=== PATIENT | male | born 1940 | race Caucasian/White ===

== ENCOUNTER 2018-09-30 08:00 | Day surgery (SDC) | payer OTHER ==
[~2018-09-30] VITALS: Ht 182.9 cm; Wt 102.5 kg
[~2018-09-30 08:00] MED LIST: CHOL10002 PO; DIPATR PO; Diovan Hct 1601 EACH PO; FISH OIL 1,0001 EAC1 PO; METF500 PO; OXYACE5T PO; PROM25 PO; SIMV10 PO; TRAM50 PO; VALS80 PO
[2018-09-30] MEDS ORDERED: ASPI81CH PO (08:02)
--- NOTE | 2018-09-30 08:19 | NUR ---
Ambulatory in Day SurgeryPatient states colon prep results clear. History, Chart, Medications and Allergies reviewed before start of procedure.Lungs clear T/O to Auscultation. Patient confirms NPO status and agrees with scheduled surgery. Patient States Post-Procedure ride home has been arranged.
--- NOTE | 2018-09-30 08:32 | NUR ---
09/30/18 0832 Antonio Plata PATIENT DETERMINED TO BE ASA APPROPRIATE FOR PROPOFOL SEDATION PRIOR TO START OF PROCEDURE BY 3-LEAD EKG REVIEWED WITH PHYSICIAN PRIOR TO START OF PROCEDURE.3-LEAD EKG REVIEWED WITH PHYSICIAN PRIOR TO START OF PROCEDURE.Patient to ENDO 1History, Chart, Medications and Allergies reviewed before start of procedure.MONITOR INTACT WITH CONTINUOUS PULSE OXIMETRY AND INTERMITTENT BP.O2 VIA N/C INTACT THROUGHOUT SEDATION/PROCEDURE.
--- NOTE | 2018-09-30 10:09 | NUR ---
Patient up to Ambulate independently. Gait steady. Discharge instructions reviewed with patient. Patient verbalizes understanding. Copy given to patient to take home. Patient States Post-Procedure ride home has been arranged. Discharged via wheelchair to private car for ride home. PT INFO TO BE GIVEN TO PT ADVOCATE FOR F/U CALL REGARDING RESOURCES OR CONTACT INFO FOR POTENTIAL RESOURCES FOR RESPITE CARE FOR HOME SITUATION. 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 DIALYSIS AND DEMENTIA.
== END 2018-09-30 22:54 | disposition home or self-care (01) ==
LOC: ORSCMMR 08:00 → ORD 09:00 → ORSCMMR 22:54
PROVIDERS: Internal Medicine Gastroenterology
PROC: 0DBL8ZX Excision of Transverse Colon, Via Natural or Artificial Opening Endoscopic, Diagnostic (ICD-10-PCS; principal; 2018-09-30 09:00)
PROC: 0DBH8ZX Excision of Cecum, Via Natural or Artificial Opening Endoscopic, Diagnostic (ICD-10-PCS; principal; 2018-09-30 09:00)
PROC: 0DBN8ZX Excision of Sigmoid Colon, Via Natural or Artificial Opening Endoscopic, Diagnostic (ICD-10-PCS; principal; 2018-09-30 09:00)
PROC: 0DBM8ZX Excision of Descending Colon, Via Natural or Artificial Opening Endoscopic, Diagnostic (ICD-10-PCS; principal; 2018-09-30 09:00)
DX: Z86.010 Personal history of colon polyps (principal); D12.4 Benign neoplasm of descending colon; D12.3 Benign neoplasm of transverse colon; D12.0 Benign neoplasm of cecum; D12.5 Benign neoplasm of sigmoid colon; K63.89 Other specified diseases of intestine; I10 Essential (primary) hypertension; E78.00 Pure hypercholesterolemia, unspecified; E11.9 Type 2 diabetes mellitus without complications; Z79.899 Other long term (current) drug therapy; Z87.891 Personal history of nicotine dependence; Z79.82 Long term (current) use of aspirin
CPT/HCPCS: 82947; 88305; J2704; J7120

== ENCOUNTER 2020-02-25 16:38 | Emergency (ER) | payer OTHER ==
[~2020-02-25] VITALS: Ht 182.9 cm; Wt 103.4 kg
[~2020-02-25 16:38] MED LIST changes: +ASPI81CH PO; +LINZESS290 MCG PO
[2020-02-25 17:12] LABS: BASOPHILS ABSOLUTE AUTO 0.02 K/mm3 (0.00-0.23); BASOPHILS PERCENT AUTO 1 % (0-2); EOSINOPHILS ABSOLUTE AUTO 0.05 K/mm3 (0.00-0.68); EOSINOPHILS PERCENT AUTO 1 % (0-6); Hematocrit 40.6 % (37.0-53.0); Hemoglobin 13.7 g/dL (13.5-17.5); IMMATURE GRAN ABSOLUTE AUTO 0.02 K/mm3 (0.00-0.10); IMMATURE GRAN PERCENT AUTO 1 % (0-1); LYMPHOCYTES PERCENT AUTO 27 % (21-46); MONOCYTES ABSOLUTE AUTO 0.52 K/mm3 (0.16-1.47); MONOCYTES PERCENT AUTO 14 % (4-13); Mean Corpuscular HGB 29.4 pg (26.0-34.0); Mean Corpuscular HGB Conc 33.7 g/dL (31.5-36.5); Mean Corpuscular Volume 87 fL (80-100); Mean Platelet Volume 9.1 fL (9.1-12.4); NEUTROPHILS ABSOLUTE AUTO 2.15 K/mm3 (1.96-9.15); NEUTROPHILS PERCENT AUTO 57 % (41-73); Platelet Count 161 K/mm3 (150-400); RDW Coefficient Variation 11.9 % (11.7-14.2); RDW Standard Deviation 38.4 fL (35.1-46.3); Red Blood Cell Count 4.66 M/mm3 (4.30-5.90); White Blood Cell Count 3.76 K/mm3 (4.00-11.30)
[2020-02-25 17:33] LABS: Alanine Aminotransfer (ALT/SGP 31 U/L (12-78); Albumin, Blood 3.1 g/dL (3.4-5.0); Albumin/Globulin Ratio 0.7 (0.8-1.8); Alk Phos 65 U/L (50-136); Anion Gap 10 mmol/L (6-16); Aspartate Aminotrans (AST/SGOT 37 U/L (12-37); Bilirubin, Total 0.6 mg/dL (0.1-1.0); Blood Urea Nitrogen 23 mg/dL (8-24); Bun/Creatinine Ratio 20.2 (12.0-20.0); CO2, Blood 25 mmol/L (21-32); Calcium, Blood 8.7 mg/dL (8.5-10.1); Chloride, Blood 96 mmol/L (98-108); Creatinine, Blood 1.14 mg/dL (0.60-1.20); Globulin, Blood 4.2 g/dL (2.2-4.0); Glomerular Filtration Rate >60 (60-); Glucose, Blood 168 mg/dL (70-99); Potassium, Blood 3.4 mmol/L (3.5-5.5); Sodium, Blood 131 mmol/L (136-145); Total Protein, Blood 7.3 g/dL (6.4-8.2); Troponin I <0.015 ng/mL (0.000-0.040)
== END 2020-02-25 18:29 | disposition home or self-care (01) ==
LOC: ER 16:38 → EDBD 16:38 → ER 18:29
PROVIDERS: Student in an Organized Health Care Education/Training Program
DX: R53.1 Weakness (principal); I10 Essential (primary) hypertension; Z79.82 Long term (current) use of aspirin; Z79.84 Long term (current) use of oral hypoglycemic drugs; Z79.899 Other long term (current) drug therapy; Z87.891 Personal history of nicotine dependence
CPT/HCPCS: 36415; 80053; 84484; 85025; 93005; 93010; 99284-25

== ENCOUNTER 2020-04-17 08:48 | Emergency (ER) | payer OTHER ==
[~2020-04-17] VITALS: Ht 182.9 cm; Wt 108.9 kg
[2020-04-17] MEDS ORDERED: BISA5EC PO (09:13)
[2020-04-17] MEDS ORDERED: MAGCIT300 PO (09:13)
== END 2020-04-17 09:16 | disposition home or self-care (01) ==
LOC: ER 08:48
DX: K59.00 Constipation, unspecified (principal); I10 Essential (primary) hypertension; Z87.891 Personal history of nicotine dependence
CPT/HCPCS: 99282

== ENCOUNTER 2021-12-11 06:35 | Day surgery (SDC) | payer OTHER ==
[~2021-12-11] VITALS: Ht 182.9 cm; Wt 107.0 kg
[~2021-12-11 06:35] MED LIST changes: +BISA5EC PO; +FISH OIL 1,2001 EAC4 PO; +MAGCIT300 PO
--- NOTE | 2021-12-11 08:06 | NUR ---
12/11/21 0806 Сергей Pappas HISTORY, CHART, MEDICATIONS AND ALLERGIES REVIEWED BEFORE START OF PROCEDURE. PATIENT CONFIRMS NPO STATUS AND AGREES WITH SCHEDULED PROCEDURE. 3-LEAD EKG REVIEWED WITH PHYSICIAN PRIOR TO START OF PROCEDURE. MONITOR INTACT WITH CONTINUOUS PULSE OXIMETRY,CAPNOGRAPHY, 3-LEAD EKG, INTERMITTENT BP. SUPPLEMENTAL O2 TO BE TITRATED THROUGHOUT PROCEDURE TO MAINTAIN O2 SATURATION ABOVE 90%. PATIENT DETERMINED TO BE ASA APPROPRIATE FOR PROPOFOL SEDATION PRIOR TO START OF PROCEDURE BY .
--- NOTE | 2021-12-11 10:06 | NUR ---
Discharge instructions reviewed with patient. Patient verbalizes understanding. Copy given to patient to take home. Discharged via wheelchair to private car for ride home.
== END 2021-12-11 09:30 | disposition home or self-care (01) ==
LOC: ORSCMMR 06:35 → ORD 08:00 → ORSCMMR 08:00
PROVIDERS: Internal Medicine Gastroenterology
PROC: 0DBK8ZX Excision of Ascending Colon, Via Natural or Artificial Opening Endoscopic, Diagnostic (ICD-10-PCS; principal; 2021-12-11 08:00)
PROC: 0DBM8ZX Excision of Descending Colon, Via Natural or Artificial Opening Endoscopic, Diagnostic (ICD-10-PCS; principal; 2021-12-11 08:00)
PROC: 0DBL8ZX Excision of Transverse Colon, Via Natural or Artificial Opening Endoscopic, Diagnostic (ICD-10-PCS; principal; 2021-12-11 08:00)
PROC: 0DBN8ZX Excision of Sigmoid Colon, Via Natural or Artificial Opening Endoscopic, Diagnostic (ICD-10-PCS; principal; 2021-12-11 08:00)
DX: Z86.010 Personal history of colon polyps (principal); D12.5 Benign neoplasm of sigmoid colon; D12.3 Benign neoplasm of transverse colon; D12.2 Benign neoplasm of ascending colon; D12.4 Benign neoplasm of descending colon; K63.5 Polyp of colon; Z86.16 Personal history of COVID-19; H40.9 Unspecified glaucoma; I10 Essential (primary) hypertension; E78.00 Pure hypercholesterolemia, unspecified; K63.89 Other specified diseases of intestine; E11.9 Type 2 diabetes mellitus without complications; Z87.891 Personal history of nicotine dependence; Z79.82 Long term (current) use of aspirin; Z79.84 Long term (current) use of oral hypoglycemic drugs; Z79.899 Other long term (current) drug therapy
CPT/HCPCS: 82947; 88305; J2704; J7120

== ENCOUNTER 2023-01-20 08:06 | Day surgery (SDC) | payer OTHER ==
[2023-01-20] VITALS (33 sets, daily range): BP systolic 89–166; BP diastolic 53–89
[~2023-01-20] VITALS: Ht 182.9 cm; Wt 99.4 kg
[~2023-01-20 08:06] MED LIST changes: +GLUCHON PO
--- NOTE | 2023-01-20 08:35 | NUR ---
Ambulatory in Day Surgery History, Chart, Medications and Allergies reviewed before start of procedure.Lungs clear T/O to Auscultation. Patient confirms NPO status and agrees with scheduled surgery. Patient states colon prep results clear. Patient States Post-Procedure ride home has been arranged.
--- NOTE | 2023-01-20 08:56 | NUR ---
01/20/23 08Tracie Powell HISTORY, CHART, MEDICATIONS AND ALLERGIES REVIEWED BEFORE START OF PROCEDURE. PATIENT CONFIRMS NPO STATUS AND AGREES WITH SCHEDULED PROCEDURE. 3-LEAD EKG REVIEWED WITH PHYSICIAN PRIOR TO START OF PROCEDURE. MONITOR INTACT WITH CONTINUOUS PULSE OXIMETRY,CAPNOGRAPHY, 3-LEAD EKG, INTERMITTENT BP. SUPPLEMENTAL O2 TO BE TITRATED THROUGHOUT PROCEDURE TO MAINTAIN O2 SATURATION ABOVE 90%. PATIENT DETERMINED TO BE ASA APPROPRIATE FOR PROPOFOL SEDATION PRIOR TO START OF PROCEDURE BY .
--- NOTE | 2023-01-20 10:24 | NUR ---
Patient up to Ambulate independently. Gait steady. Discharge instructions reviewed with patient. Patient verbalizes understanding. Copy given to patient to take home, WELL FRIEND. Patient States Post-Procedure ride home has been arranged. Discharged via wheelchair to private car for ride home.
== END 2023-01-20 10:24 | disposition home or self-care (01) ==
LOC: ORSCMMR 08:06 → ORD 09:00 → ORSCMMR 10:24
PROVIDERS: Internal Medicine Gastroenterology
PROC: 0DBN8ZX Excision of Sigmoid Colon, Via Natural or Artificial Opening Endoscopic, Diagnostic (ICD-10-PCS; principal; 2023-01-20 09:00)
PROC: 0DBL8ZX Excision of Transverse Colon, Via Natural or Artificial Opening Endoscopic, Diagnostic (ICD-10-PCS; principal; 2023-01-20 09:00)
PROC: 0DBM8ZX Excision of Descending Colon, Via Natural or Artificial Opening Endoscopic, Diagnostic (ICD-10-PCS; principal; 2023-01-20 09:00)
PROC: 0DBK8ZX Excision of Ascending Colon, Via Natural or Artificial Opening Endoscopic, Diagnostic (ICD-10-PCS; principal; 2023-01-20 09:00)
DX: Z86.010 Personal history of colon polyps (principal); D12.5 Benign neoplasm of sigmoid colon; D12.3 Benign neoplasm of transverse colon; D12.2 Benign neoplasm of ascending colon; D12.4 Benign neoplasm of descending colon; Z85.46 Personal history of malignant neoplasm of prostate; I10 Essential (primary) hypertension; E11.9 Type 2 diabetes mellitus without complications; E78.00 Pure hypercholesterolemia, unspecified; Z79.84 Long term (current) use of oral hypoglycemic drugs; Z79.899 Other long term (current) drug therapy; Z87.891 Personal history of nicotine dependence
CPT/HCPCS: 82947; 88305; J2250; J2704; J7120

== ENCOUNTER 2023-08-08 10:04 | Inpatient (IN) | payer OTHER ==
[~2023-08-08] VITALS: Ht 185.4 cm; Wt 101.3 kg
[~2023-08-08 10:04] MED LIST changes: -SIMV10 PO; +Zocor10 MG PO
[2023-08-08] MEDS ORDERED: NS 1,000 ML IV SCH ×2 (10:55→14:20)
[2023-08-08 11:37] LABS: BASOPHILS ABSOLUTE AUTO 0.11 K/mm3 (0.00-0.23); BASOPHILS PERCENT AUTO 1 % (0-2); EOSINOPHILS ABSOLUTE AUTO 0.02 K/mm3 (0.00-0.68); EOSINOPHILS PERCENT AUTO 0 % (0-6); Hematocrit 45.9 % (37.0-53.0); Hemoglobin 14.4 g/dL (13.5-17.5); IMMATURE GRAN ABSOLUTE AUTO 0.03 K/mm3 (0.00-0.10); IMMATURE GRAN PERCENT AUTO 0 % (0-1); LYMPHOCYTES ABSOLUTE AUTO 0.39 K/mm3 (0.84-5.20); LYMPHOCYTES PERCENT AUTO 4 % (21-46); MONOCYTES PERCENT AUTO 4 % (4-13); Mean Corpuscular HGB 29.1 pg (26.0-34.0); Mean Corpuscular HGB Conc 31.4 g/dL (31.5-36.5); Mean Corpuscular Volume 93 fL (80-100); Mean Platelet Volume 9.1 fL (9.1-12.4); NEUTROPHILS ABSOLUTE AUTO 10.07 K/mm3 (1.96-9.15); NEUTROPHILS PERCENT AUTO 91 % (41-73); Platelet Count 173 K/mm3 (150-400); RDW Coefficient Variation 12.5 % (11.7-14.2); RDW Standard Deviation 42.5 fL (35.1-46.3); Red Blood Cell Count 4.94 M/mm3 (4.30-5.90); White Blood Cell Count 11.02 K/mm3 (4.00-11.30)
[2023-08-08 11:57] LABS: Albumin, Blood 3.8 g/dL (3.4-5.0); Bilirubin, Total 1.2 mg/dL (0.1-1.0); Bun/Creatinine Ratio 17.3 (12.0-20.0); Calcium, Blood 9.1 mg/dL (8.5-10.1); Creatinine, Blood 0.93 mg/dL (0.60-1.20); Globulin, Blood 3.9 g/dL (2.2-4.0); Potassium, Blood 3.8 mmol/L (3.5-5.5); Total Protein, Blood 7.7 g/dL (6.4-8.2)
[2023-08-08 11:58] LABS: BASOPHILS PERCENT MAN 0 % (0-2); EOSINOPHILS PERCENT MAN 0 % (0-6); LYMPHOCYTES ABSOLUTE MAN 0.11 K/mm3 (0.84-5.20); LYMPHOCYTES PERCENT MAN 1 % (21-46); MONOCYTES ABSOLUTE MAN 0.11 K/mm3 (0.16-1.47); MONOCYTES PERCENT MAN 1 % (4-13); NEUTROPHILS ABSOLUTE MAN 10.79 K/mm3 (1.96-9.15); SEG NEUTROPHILS PERCENT MAN 98 % (41-73); TOTAL CELLS COUNTED 100
[2023-08-08] MEDS ORDERED: Ketorolac Tromethamine 30mg Vial IV ONE (13:00)
[2023-08-08 13:11] LABS: Source, Urine Clean Catch
[2023-08-08 13:13] LABS: Appearance, Urine Clear (Clear); Bilirubin, Urine Neg (Neg); Blood, Urine 2+ (Neg); Color, Urine Yellow (P-Yellow); Glucose Qualitative, Urine Neg (Neg); Ketones, Urine 4+ (Neg); Leukocyte Esterase, Urine Neg (Neg); Nitrite, Urine Neg (Neg); Protein, Urine 1+ (Neg); Specific Gravity, Urine 1.015 (1.003-1.022); Urobilinogen, Urine NORM (Normal)
[2023-08-08] MEDS ORDERED: Adenosine 3 MG/ML 2 ML Vial ONE ×2 (14:03→14:05)
[2023-08-08] MEDS ORDERED: dilTIAZem HCL 125 MG in Dextrose 5% 100 ML IV SCH (14:15)
[2023-08-08] MEDS ORDERED: Diltiazem HCl 5 MG / ML 5ML Vial IV ONE (14:15)
[2023-08-08] MEDS ORDERED: Adenosine 3 MG/ML 2 ML Vial IV ONE ×2 (14:15)
[2023-08-08 14:20] LABS: Bacteria Mod /hpf; Mucus Light (0-Heavy); Squamous Epithelial Cells Rare /hpf (Few); White Blood Cells, Urine 0-2 /hpf (0-5)
[2023-08-08] MEDS ORDERED: Acetaminophen 325 MG TABLET PO PRN (15:20)
[2023-08-08] MEDS ORDERED: DiphenhydrAMINE HCL 25 MG Cap PO PRN (15:20)
[2023-08-08] MEDS ORDERED: TraMADol HCl 50 MG Tab PO PRN (15:25)
[2023-08-08] MEDS ORDERED: Ondansetron HCl 2 MG / ML 2ML Vial IV PRN (15:25)
[2023-08-08] MEDS ORDERED: NS KCl 20mEq 1,000 ML IV SCH (15:25)
[2023-08-08] MEDS ORDERED: TraZODone HCl 50 MG Tab PO PRN (15:25)
[2023-08-08 15:37] LABS: U Amphetamine Screen Not Detected; U Barbituate Screen Not Detected; U Benzodiazapine Screen Not Detected; U Buprenorphine Screen Not Detected; U Cannabinoids Screen Not Detected; U Cocaine Screen Not Detected; U Methadone Screen Not Detected; U Methamphetamine Screen Not Detected; U Opiates Screen Not Detected; U Oxycodone Screen Not Detected; U Phencyclidine Screen Not Detected
--- NOTE | 2023-08-08 16:16 | NUR ---
REPORT RECIEVED FROM ED NURSE AT 1036
[2023-08-08] MEDS ORDERED: Insulin Human Lispro 100 Units/ML 3ML Syringe SC SCH (16:30)
[2023-08-08 16:51] VITALS: BP 143/64
[2023-08-08] MEDS ORDERED: GLUCHON PO (16:58)
[2023-08-08 17:37] VITALS: BP 121/99
--- NOTE | 2023-08-08 17:50 | NUR ---
ARRIVAL TO PCU PT ARRIVED TO PCU AT 1635 VIA GURNEY AND ON RA. PT HAD DILT GTT AND NS KCL RUNNING PER ORDER. PT A/OX4 AT TIME OF ARRIVAL. NO REPORT OF CHEST PAIN/PRESSURE OR SOB. PT ABLE TO AMBULATED FROM GURNEY TO BED WITH MINIMAL ASSISTANCE. HR 90'S WHILE AT REST ON GURNEY AND TACHED UP TO 110 WHILE TRANSFERING TO PCU BED. VS TAKEN AND STABLE AT ARRIVAL. PT ORIENTED TO ROOM AND INFORMED OF FALL RISKS. PT INSTRUCTED TO USE CALL LIGHT FOR ASSISTANCE, PT VERBALIZED UNDERSTANDING. PT A GOOD HISTORIAN FOR HEALTH.
[2023-08-08] MEDS ORDERED: Atorvastatin 10 MG Tab PO SCH (18:00)
[2023-08-08 18:22] VITALS: BP 136/63
[2023-08-08 19:27] VITALS: BP 133/67
[2023-08-08] MEDS ORDERED: Famotidine 10 MG/ML 2ML Vial IV SCH (21:00)
--- NOTE | 2023-08-08 21:15 | NUR ---
UPDATE CARDIZEM GTT TITRATED OFF AT THIS TIME DUE TO PATIENT BEING IN SINUS RHYTHM WITH HR MID 80s SINCE START OF SHIFT. BP STABLE. PATIENT DENYING CHEST PAIN OR ANY OTHER CARDIAC SYMPTOMS. CALL LIGHT IN REACH.
[2023-08-08 23:25] VITALS: BP 112/51
[2023-08-09 04:42] VITALS: BP 133/70
[2023-08-09] MEDS ORDERED: Hyaluronidase 150 UNIT/ML Vial SC ONE (05:05)
--- NOTE | 2023-08-09 05:15 | NUR ---
UPDATE PATIENT CALLED THIS RN AND REPORTED LEFT ARM PAIN. UPON ASSESSMENT, NOTED LEFT UPPER ARM TO FOREARM WAS SWOLLEN AND WARM TO TOUCH, WITH SOME SWELLING. NS/20MEQ POTASSIUM INFUSING INTO POWERGLIDE. INFUSION PAUSED. PHARMACY AND HOSPITALIST CALLED. PER PHARMACY RECOMMENDATION, AMPHADASE INJECTED INTO POWERGLIDE AND INJECTED SUBCUTANEOUS AROUND POWERGLIDE INSERTION SITE. POWERGLIDE REMOVED. MARK ANTHONY WRAP AROUND UPPER ARM AND FOREARM. PATIENT EDUCATED ON INFILTRATION AND TREATMENT. PATIENT TOLERATING WELL. MEDICATED PER EMAR FOR PAIN.
[2023-08-09 05:27] LABS: BASOPHILS PERCENT AUTO 1 % (0-2); EOSINOPHILS PERCENT AUTO 0 % (0-6); Hematocrit 41.4 % (37.0-53.0); Hemoglobin 13.4 g/dL (13.5-17.5); IMMATURE GRAN ABSOLUTE AUTO 0.03 K/mm3 (0.00-0.10); IMMATURE GRAN PERCENT AUTO 0 % (0-1); LYMPHOCYTES ABSOLUTE AUTO 1.04 K/mm3 (0.84-5.20); LYMPHOCYTES PERCENT AUTO 12 % (21-46); MONOCYTES ABSOLUTE AUTO 0.77 K/mm3 (0.16-1.47); MONOCYTES PERCENT AUTO 9 % (4-13); Mean Corpuscular HGB 29.3 pg (26.0-34.0); Mean Corpuscular HGB Conc 32.4 g/dL (31.5-36.5); Mean Corpuscular Volume 91 fL (80-100); Mean Platelet Volume 9.2 fL (9.1-12.4); NEUTROPHILS ABSOLUTE AUTO 6.76 K/mm3 (1.96-9.15); NEUTROPHILS PERCENT AUTO 78 % (41-73); Platelet Count 169 K/mm3 (150-400); RDW Coefficient Variation 12.8 % (11.7-14.2); RDW Standard Deviation 41.8 fL (35.1-46.3); Red Blood Cell Count 4.57 M/mm3 (4.30-5.90)
[2023-08-09 05:50] LABS: Albumin, Blood 3.5 g/dL (3.4-5.0); Albumin/Globulin Ratio 0.9 (0.8-1.8); Bilirubin, Total 0.8 mg/dL (0.1-1.0); Calcium, Blood 8.9 mg/dL (8.5-10.1); Creatinine, Blood 0.95 mg/dL (0.60-1.20); Globulin, Blood 3.7 g/dL (2.2-4.0); Potassium, Blood 3.9 mmol/L (3.5-5.5); Total Protein, Blood 7.2 g/dL (6.4-8.2)
--- NOTE | 2023-08-09 06:46 | NUR ---
SHIFT SUMMARY PATIENT ALERT AND ORIENTED x4. ABLE TO MAKE NEEDS KNOWN TO STAFF. CARDIZEM TITRATED OFF AROUND 2100 D/T PATIENT IN SR ON TELE. NO CARDIAC EVENTS OVERNIGHT. BP STABLE. TMAX 100.5, MEDICATED WITH PRN TYLENOL. PATIENT ON RA WITH SPO2 >90% DURING THE NIGHT. PATIENT AMBULATING INTO BATHROOM STANDBY ASSIST. ADEQUATE OUTPUT DURING THE NIGHT. SEE PREVIOUS NOTE REGARDING INFILTRATION. OTHERWISE NO OTHER SIGNIFICANT CHANGES, WILL REPORT TO DAY SHIFT RN.
[2023-08-09 07:30] VITALS: BP 142/71
[2023-08-09] MEDS ORDERED: Azithromycin 500 MG in NS 250 ML IV SCH (09:00)
[2023-08-09] MEDS ORDERED: CefTRIAXone Sodium 1,000 MG in NS 100 ML IV SCH (09:00)
[2023-08-09] MEDS ORDERED: Misc. Capsule PO SCH (09:00)
[2023-08-09] MEDS ORDERED: Misc. Tablet PO SCH (09:00)
[2023-08-09] MEDS ORDERED: Enoxaparin 40 MG/0.4 ML SYR SC SCH (09:00)
[2023-08-09] MEDS ORDERED: Losartan Potassium 50 MG Tab PO SCH (09:00)
[2023-08-09] MEDS ORDERED: Aspirin 81 MG Chew PO SCH (09:00)
[2023-08-09 11:54] VITALS: BP 142/70
[2023-08-09] MEDS ORDERED: Metoprolol Succinate 25 MG TABCR PO SCH (12:00)
[2023-08-09] MEDS ORDERED: LOSA50 PO (12:51)
[2023-08-09] MEDS ORDERED: METO25ER PO (12:52)
[2023-08-09] MEDS ORDERED: AMOCLA875 PO (12:54)
[2023-08-09] MEDS ORDERED: AZIT250 PO (12:54)
[2023-08-09 13:17] LABS: Adenovirus Not Detected (NOT DETECT); Bordetella pertussis Not Detected (NOT DETECT); Chlamydophila pneumoniae Not Detected (NOT DETECT); Coronavirus 229E Not Detected (NOT DETECT); Coronavirus HKU1 Not Detected (NOT DETECT); Coronavirus NL63 Not Detected (NOT DETECT); Coronavirus OC43 Not Detected (NOT DETECT); Human Metapneumovirus Not Detected (NOT DETECT); Human Rhinovirus/Enterovirus Not Detected (NOT DETECT); Influenza A/2009-H1 Not Detected (NOT DETECT); Influenza A/H1 Not Detected (NOT DETECT); Influenza A/H3 Not Detected (NOT DETECT); Influenza B Not Detected (NOT DETECT); Mycoplasma pneumoniae Not Detected (NOT DETECT); Parainfluenza Virus 1 Not Detected (NOT DETECT); Parainfluenza Virus 2 Not Detected (NOT DETECT); Parainfluenza Virus 3 Not Detected (NOT DETECT); Parainfluenza Virus 4 Not Detected (NOT DETECT); Respiratory Syncytial Virus Not Detected (NOT DETECT); SARS-Cov-2 (COVID-19), BioFire Detected (NOT DETECT)
--- NOTE | 2023-08-09 14:37 | NUR ---
PT DISCHARGED TO HOME WIHT DISCHARGE ORDERS. PRESCRIPTION SENT TO [facility]. PT TO CONTINUE ANTIBIOTICS AT HOME. PT HAD AN EPISODE OF NON SUSTAINED SVT PT STARTED ON METOPROLOL 25MG XL PO. PT WAS TESTED FOR RESPI PANEL AND CAME BACK POSITIVE FOR COVID. DR LEAL MADE AWARE. OKAY TO DC PT AND INSTRUCTED TO FF-UP WITH PCP WITHIN A WEEK AND TO GET SOME REST AND HYDRATE. FAMILY AT BEDSIDE UPON DISCHARGE. ALL BELONGINGS SENT WITH THE PT. ACCOMPANIED VIA WHEELCHAIR FOR TRANSPORT
== END 2023-08-09 14:25 | disposition home or self-care (01) | DRG 308 ==
LOC: ER 10:04 → PCU 16:19
PROVIDERS: Emergency Medicine; ADMIT Family Medicine
DX: I47.10 Supraventricular tachycardia, unspecified (principal); J12.82 Pneumonia due to coronavirus disease 2019; U07.1 COVID-19; I50.32 Chronic diastolic (congestive) heart failure; E11.9 Type 2 diabetes mellitus without complications; E86.0 Dehydration; Z66 Do not resuscitate; I11.0 Hypertensive heart disease with heart failure; M19.90 Unspecified osteoarthritis, unspecified site; G89.4 Chronic pain syndrome; E78.5 Hyperlipidemia, unspecified; Z90.79 Acquired absence of other genital organ(s); Z90.49 Acquired absence of other specified parts of digestive tract; Z87.891 Personal history of nicotine dependence; Z79.82 Long term (current) use of aspirin; Z79.84 Long term (current) use of oral hypoglycemic drugs; Z79.899 Other long term (current) drug therapy
CPT/HCPCS: 0202U; 36415; 71045; 80053; 81001; 82947; 83735; 84439; 84443; 84481; 84484; 85025; 92953; 93005; 93010; 94760; 96361-59; 96374-59; 96375-59; 99285-25; A9270; J0153; J0456; J0696; J1650; J1885; J3470; J3480; J7030; J7050

== ENCOUNTER 2024-01-21 07:36 | Observation (INO) | payer OTHER ==
[~2024-01-21] VITALS: Ht 182.9 cm; Wt 98.6 kg
[~2024-01-21 07:36] MED LIST changes: +AMOCLA875 PO; +AZIT250 PO; +LOSA50 PO; +METO25ER PO
[2024-01-21] MEDS ORDERED: Metoprolol Tartrate 25 MG Tab PO ONE (07:50)
[2024-01-21] MEDS ORDERED: NS 500 ML IV SCH ×2 (08:00→08:50)
[2024-01-21 08:06] LABS: BASOPHILS ABSOLUTE AUTO 0.19 K/mm3 (0.00-0.23); BASOPHILS PERCENT AUTO 2 % (0-2); EOSINOPHILS ABSOLUTE AUTO 0.45 K/mm3 (0.00-0.68); EOSINOPHILS PERCENT AUTO 5 % (0-6); Hematocrit 45.5 % (37.0-53.0); Hemoglobin 14.7 g/dL (13.5-17.5); IMMATURE GRAN ABSOLUTE AUTO 0.02 K/mm3 (0.00-0.10); IMMATURE GRAN PERCENT AUTO 0 % (0-1); LYMPHOCYTES PERCENT AUTO 30 % (21-46); MONOCYTES ABSOLUTE AUTO 0.44 K/mm3 (0.16-1.47); MONOCYTES PERCENT AUTO 5 % (4-13); Mean Corpuscular HGB 29.5 pg (26.0-34.0); Mean Corpuscular HGB Conc 32.3 g/dL (31.5-36.5); Mean Corpuscular Volume 91 fL (80-100); Mean Platelet Volume 9.4 fL (9.1-12.4); NEUTROPHILS ABSOLUTE AUTO 5.27 K/mm3 (1.96-9.15); NEUTROPHILS PERCENT AUTO 58 % (41-73); Platelet Count 270 K/mm3 (150-400); RDW Coefficient Variation 12.8 % (11.7-14.2); RDW Standard Deviation 42.4 fL (35.1-46.3); Red Blood Cell Count 4.98 M/mm3 (4.30-5.90); White Blood Cell Count 9.07 K/mm3 (4.00-11.30)
[2024-01-21 08:43] LABS: Albumin, Blood 3.2 g/dL (3.4-5.0); Bilirubin, Total 0.5 mg/dL (0.1-1.0); Bun/Creatinine Ratio 14.9 (12.0-20.0); Calcium, Blood 9.4 mg/dL (8.5-10.1); Creatinine, Blood 1.34 mg/dL (0.60-1.20); Globulin, Blood 3.2 g/dL (2.2-4.0); Potassium, Blood 3.6 mmol/L (3.5-5.5); Total Protein, Blood 6.4 g/dL (6.4-8.2)
[2024-01-21] MEDS ORDERED: METF500 PO (13:43)
[2024-01-21] MEDS ORDERED: Ondansetron HCl 2 MG / ML 2ML Vial IV PRN (15:25)
[2024-01-21] MEDS ORDERED: TraZODone HCl 50 MG Tab PO PRN (15:25)
[2024-01-21] MEDS ORDERED: Ondansetron 4 MG TAB PO PRN (15:25)
[2024-01-21] MEDS ORDERED: FLU VACC TS2024-25(6MOS UP)/PF 45 MCG/0.5 ML SYRINGE IM ONE (15:25)
[2024-01-21] MEDS ORDERED: TraMADol HCl 50 MG Tab PO PRN (15:30)
[2024-01-21 15:40] VITALS: BP 147/80
[2024-01-21] MEDS ORDERED: Heparin Sodium 5000 Units/ML 1ML MDV SC SCH (16:00)
[2024-01-21] MEDS ORDERED: Insulin Human Lispro 100 Units/ML 3ML Syringe SC SCH (16:30)
--- NOTE | 2024-01-21 19:34 | NUR ---
ADMISSION NOTE/SHIFT NOTE PATIENT A/OX4, ABLE TO MAKE NEEDS KNOWN. INDEPENDENT IN ROOM, PLEASANT ADN COOPERATIVE WITH STAFF. CONTINENT OF BOWEL AND BLADDER. PIV TO BILATERAL WRISTS PATENT AND FUNCTIONING PROPERLY. PATIENT ADMITTED WITH SVT AND CARDIOVERTED BY EMS WITH HEART RATE IN 160s AND SBP 60. BLOOD PRESSURE UPON ADMISSION WNL AND TELEMETRY IN PLACE WITH SINUS RHYTHYM IN 70s. PATIENT STATES HAS BEEN HAVING DIARRHEA SINCE LASTNIGHT. SKIN INTACT WITH REDNESS TO SCROTUM AND PENILE HEAD. ADMISSION DOCUMENTATION COMPLETED, PATIENT DENIES PAIN. FRIENDS CAME TO VISIT THIS EVENING. PATIENT STATES HE LIVES ALONE. NO OTHER CONCERNS AT THIS TIME.
[2024-01-21 20:25] VITALS: BP 147/65
[2024-01-21] MEDS ORDERED: GLUCOSAMINE CHONDROITIN PO SCH (21:00)
[2024-01-21] MEDS ORDERED: Atorvastatin 10 MG Tab PO SCH (21:00)
[2024-01-21] MEDS ORDERED: Famotidine 20 MG Tab PO SCH (21:00)
--- NOTE | 2024-01-22 03:26 | NUR ---
SHIFT SUMMARY PT IS A&O X4, PLEASANT, COOPERATIVE WITH CARE. PT DENIES PAIN AND DISCOMFORT. TELE: SR @76, NO CHANGES ON TELEMETRY DURING THIS SHIFT. PT DENIES SOB, CHEST PAIN OR PRESSURE. HS B. DAILY WT THIS AM, I &O'S. BP @HS: 147/65, P.65, O2 96% ON RA. NO ACUTE EVENTS DURING THIS SHIFT. BED AT THE LOWEST POSITION, CALL LIGHT WITHIN REACH. PT IS ABLE TO MAKE HIS NEEDS KNOWN.
[2024-01-22 05:08] VITALS: BP 166/72
[2024-01-22 05:35] LABS: BASOPHILS ABSOLUTE AUTO 0.18 K/mm3 (0.00-0.23); BASOPHILS PERCENT AUTO 3 % (0-2); EOSINOPHILS ABSOLUTE AUTO 0.51 K/mm3 (0.00-0.68); EOSINOPHILS PERCENT AUTO 7 % (0-6); Hematocrit 44.4 % (37.0-53.0); Hemoglobin 14.3 g/dL (13.5-17.5); IMMATURE GRAN ABSOLUTE AUTO 0.01 K/mm3 (0.00-0.10); IMMATURE GRAN PERCENT AUTO 0 % (0-1); LYMPHOCYTES ABSOLUTE AUTO 1.74 K/mm3 (0.84-5.20); LYMPHOCYTES PERCENT AUTO 24 % (21-46); MONOCYTES ABSOLUTE AUTO 0.55 K/mm3 (0.16-1.47); MONOCYTES PERCENT AUTO 8 % (4-13); Mean Corpuscular HGB 29.5 pg (26.0-34.0); Mean Corpuscular HGB Conc 32.2 g/dL (31.5-36.5); Mean Corpuscular Volume 92 fL (80-100); Mean Platelet Volume 8.8 fL (9.1-12.4); NEUTROPHILS ABSOLUTE AUTO 4.27 K/mm3 (1.96-9.15); NEUTROPHILS PERCENT AUTO 59 % (41-73); Platelet Count 195 K/mm3 (150-400); RDW Coefficient Variation 12.6 % (11.7-14.2); RDW Standard Deviation 42.8 fL (35.1-46.3); Red Blood Cell Count 4.84 M/mm3 (4.30-5.90); White Blood Cell Count 7.26 K/mm3 (4.00-11.30)
[2024-01-22 05:55] LABS: Albumin, Blood 3.3 g/dL (3.4-5.0); Albumin/Globulin Ratio 0.9 (0.8-1.8); Bilirubin, Total 0.5 mg/dL (0.1-1.0); Bun/Creatinine Ratio 23.1 (12.0-20.0); Calcium, Blood 9.4 mg/dL (8.5-10.1); Creatinine, Blood 1.08 mg/dL (0.60-1.20); Globulin, Blood 3.5 g/dL (2.2-4.0); Potassium, Blood 4.2 mmol/L (3.5-5.5); Total Protein, Blood 6.8 g/dL (6.4-8.2)
--- NOTE | 2024-01-22 06:23 | NUR ---
CRITICAL LAB VALUE OF TROPONIN:983 RECEIVED FROM VERÓNICA @LAB @0610. THIS PAYROLL SECRETARY NOTIFIED THE ON-CALL HOSPITALIST DR. HOWELL @[phone] OVER THE PHONE. NO NEW ORDERS AT THIS TIME. CHARGE NURSE SOFYA HOLDER NOTIFIED.
[2024-01-22 07:36] VITALS: BP 149/83
[2024-01-22] MEDS ORDERED: Omega-3 Acid Ethyl Esters 1,000 MG CAP PO SCH (09:00)
[2024-01-22] MEDS ORDERED: LINACLOTIDE (LINZESS) 290 MCG CAPSULE PO SCH (09:00)
[2024-01-22] MEDS ORDERED: Aspirin 81 MG Chew PO SCH (09:00)
[2024-01-22] MEDS ORDERED: Metoprolol Succinate 25 MG TABCR PO SCH (09:00)
[2024-01-22 10:14] VITALS: BP 170/93
[2024-01-22] MEDS ORDERED: dilTIAZem HCL 240 MG CAP.CD PO ONE (10:15)
[2024-01-22 12:49] VITALS: BP 137/89
[2024-01-22] MEDS ORDERED: DILT120 PO (13:08)
--- NOTE | 2024-01-22 13:46 | NUR ---
DISCHARGE SUMMARY: PT DISCHARGED TO HOME. PT ABLE TO GET SELF DRESSED AND PACK UP BELONGINGS. PT EDUCATED ON DISCHARGE INSTRUCTIONS AND MEDICATIONS. BP UPDATED PRIOR TO DISCHARGE AND NOTIFIED DR. GATES OF RESULT. PER DR. GATES PT OKAY TO GO HOME. EDUCATED PT ON IMPORTANCE OF CHECKING BP PRIOR TO TAKING DILTIAZEM. PT REPORTS HE KNOWS HOW TO TAKE BP AND HE WILL WRITE THEM DOWN FOR HIS DR TO REVIEW. ALSO EDUCATED PT ON FLUID RESTRICTION AND ADVISED HIME TO CHECK HIS WEIGHT DAILY AND IF GAINED +5 LBS TO CALL HIS DOCTOR. PT V/U. PT ESCORTED TO [facility] VIA WHEELCHAIR VOLUNTEER ESCORT. BELONGINGS WITH PT.
== END 2024-01-22 13:32 | disposition home or self-care (01) ==
LOC: ER 07:36 → MEDS 07:37
PROVIDERS: Student in an Organized Health Care Education/Training Program; ADMIT Internal Medicine
DX: I47.10 Supraventricular tachycardia, unspecified (principal); I11.0 Hypertensive heart disease with heart failure; I50.32 Chronic diastolic (congestive) heart failure; E11.9 Type 2 diabetes mellitus without complications; M19.90 Unspecified osteoarthritis, unspecified site; I35.0 Nonrheumatic aortic (valve) stenosis; Z79.84 Long term (current) use of oral hypoglycemic drugs; Z79.899 Other long term (current) drug therapy; E78.5 Hyperlipidemia, unspecified
CPT/HCPCS: 36415; 71045; 71250; 80053; 82947; 83735; 83880; 84484; 85025; 93005; 93010; 93306; 96360-59; 96361; 96372; 99285-25; A9270; G0378; J1644; J7030

== ENCOUNTER 2024-02-18 08:22 | Observation (INO) | payer OTHER ==
[~2024-02-18] VITALS: Ht 182.9 cm; Wt 97.5 kg
[~2024-02-18 08:22] MED LIST changes: +DILT120 PO
[2024-02-18 08:56] LABS: BASOPHILS ABSOLUTE AUTO 0.17 K/mm3 (0.00-0.23); BASOPHILS PERCENT AUTO 2 % (0-2); EOSINOPHILS ABSOLUTE AUTO 0.35 K/mm3 (0.00-0.68); EOSINOPHILS PERCENT AUTO 4 % (0-6); Hematocrit 46.5 % (37.0-53.0); Hemoglobin 15.1 g/dL (13.5-17.5); IMMATURE GRAN ABSOLUTE AUTO 0.02 K/mm3 (0.00-0.10); IMMATURE GRAN PERCENT AUTO 0 % (0-1); LYMPHOCYTES ABSOLUTE AUTO 1.07 K/mm3 (0.84-5.20); LYMPHOCYTES PERCENT AUTO 13 % (21-46); MONOCYTES ABSOLUTE AUTO 0.49 K/mm3 (0.16-1.47); MONOCYTES PERCENT AUTO 6 % (4-13); Mean Corpuscular HGB 29.4 pg (26.0-34.0); Mean Corpuscular HGB Conc 32.5 g/dL (31.5-36.5); Mean Corpuscular Volume 91 fL (80-100); Mean Platelet Volume 8.7 fL (9.1-12.4); NEUTROPHILS PERCENT AUTO 74 % (41-73); Platelet Count 233 K/mm3 (150-400); RDW Coefficient Variation 12.4 % (11.7-14.2); RDW Standard Deviation 41.1 fL (35.1-46.3); Red Blood Cell Count 5.14 M/mm3 (4.30-5.90)
[2024-02-18 09:14] LABS: Bilirubin, Total 0.6 mg/dL (0.1-1.0); Bun/Creatinine Ratio 16.5 (12.0-20.0); Calcium, Blood 10.1 mg/dL (8.5-10.1); Creatinine, Blood 1.03 mg/dL (0.60-1.20); Globulin, Blood 4.1 g/dL (2.2-4.0); Potassium, Blood 4.3 mmol/L (3.5-5.5); Total Protein, Blood 8.1 g/dL (6.4-8.2)
[2024-02-18] MEDS ORDERED: FLU VACC TS2024-25(6MOS UP)/PF 45 MCG/0.5 ML SYRINGE IM SCH (13:05)
[2024-02-18] MEDS ORDERED: TraMADol HCl 50 MG Tab PO PRN (13:15)
[2024-02-18] MEDS ORDERED: Caffeine Citrated 60 MG/3 ML Vial ONE (14:43)
[2024-02-18] MEDS ORDERED: Regadenoson 0.4 MG/5 ML SYRINGE ONE (14:43)
--- NOTE | 2024-02-18 16:45 | NUR ---
PER DR. STRANGE HOLD TONIGHT AND MORNING DOSE OF METFORMIN, ORDER TELE, CBG AC/HS, NO COVERAGE AT THIS TIME.
[2024-02-18] MEDS ORDERED: MetFORMIN HCl 500 mg PO SCH (17:00)
[2024-02-18 17:07] VITALS: BP 124/62
--- NOTE | 2024-02-18 17:17 | NUR ---
PT ADMIT FROM ER. ALERT AND ORIENTED X4, ABLE TO EXPRESS NEEDS, DENIES CHEST PAIN AND PRESSURE, DENIES SOB. INDEPENDENT IN THE ROOM
[2024-02-18] MEDS ORDERED: Atorvastatin 10 MG Tab PO SCH (18:00)
[2024-02-18 19:28] VITALS: BP 137/71
[2024-02-19 05:44] VITALS: BP 153/84
[2024-02-19 06:39] LABS: BASOPHILS ABSOLUTE AUTO 0.15 K/mm3 (0.00-0.23); BASOPHILS PERCENT AUTO 2 % (0-2); EOSINOPHILS ABSOLUTE AUTO 0.47 K/mm3 (0.00-0.68); EOSINOPHILS PERCENT AUTO 8 % (0-6); Hematocrit 39.8 % (37.0-53.0); Hemoglobin 13.1 g/dL (13.5-17.5); IMMATURE GRAN ABSOLUTE AUTO 0.02 K/mm3 (0.00-0.10); IMMATURE GRAN PERCENT AUTO 0 % (0-1); LYMPHOCYTES ABSOLUTE AUTO 1.35 K/mm3 (0.84-5.20); LYMPHOCYTES PERCENT AUTO 22 % (21-46); MONOCYTES PERCENT AUTO 8 % (4-13); Mean Corpuscular HGB Conc 32.9 g/dL (31.5-36.5); Mean Corpuscular Volume 91 fL (80-100); Mean Platelet Volume 9.1 fL (9.1-12.4); NEUTROPHILS ABSOLUTE AUTO 3.65 K/mm3 (1.96-9.15); NEUTROPHILS PERCENT AUTO 60 % (41-73); Platelet Count 245 K/mm3 (150-400); RDW Coefficient Variation 12.4 % (11.7-14.2); RDW Standard Deviation 41.1 fL (35.1-46.3); Red Blood Cell Count 4.37 M/mm3 (4.30-5.90); White Blood Cell Count 6.14 K/mm3 (4.00-11.30)
--- NOTE | 2024-02-19 06:43 | NUR ---
AAOX4, INDEPENDENT IN ROOM, STEADY GAIT. PT WILL RING FOR HELP WITH SCDS OR TO LET STAFF KNOW HE IS GOING OR WENT TO BR. TELE IN PLACE, SR IN THE 90'S. NPO @ MIDNIGHT FOR STRESS TEST ON 02/18/23.
[2024-02-19 07:02] LABS: LDL/HDL RATIO 1.2; Magnesium, Blood 2.2 mg/dL (1.6-2.4)
[2024-02-19 07:03] LABS: CHOL/HDL RATIO 2.5; Cholesterol 136 mg/dL (50-200); HDL Cholesterol 54 mg/dL (>39); Low Density Lipoprotein Chol 62 mg/dL (0-110); Triglycerides 98 mg/dL (30-160); Very Low Density Lipoprot Chol 19 mg/dL (6-32)
[2024-02-19 08:07] VITALS: BP 152/80
[2024-02-19] MEDS ORDERED: Enoxaparin 40 MG/0.4 ML SYR SC SCH (09:00)
[2024-02-19] MEDS ORDERED: Losartan Potassium 50 MG Tab PO SCH (09:00)
[2024-02-19] MEDS ORDERED: Aspirin 81 MG Chew PO SCH (09:00)
[2024-02-19] MEDS ORDERED: dilTIAZem HCL 240 MG CAP.CD PO SCH (09:00)
--- NOTE | 2024-02-19 12:32 | NUR ---
Pt has been discharged to home after got results of stress test, went over discharge instructions with him, he verbalized understanding, iv removed intact, will eat lunch and wait for ride, call light in reach.
--- NOTE | 2024-02-19 13:15 | NUR ---
pt left via wheelchair with battery technician in attendence with all his belongings.
== END 2024-02-19 13:15 | disposition home or self-care (01) ==
LOC: ER 08:22 → MEDS 08:23
PROVIDERS: Physician Assistant; ADMIT Family Medicine
DX: R07.89 Other chest pain (principal); R79.89 Other specified abnormal findings of blood chemistry; E78.5 Hyperlipidemia, unspecified; E11.9 Type 2 diabetes mellitus without complications; I11.0 Hypertensive heart disease with heart failure; I50.30 Unspecified diastolic (congestive) heart failure; I35.0 Nonrheumatic aortic (valve) stenosis; I48.91 Unspecified atrial fibrillation; Z79.899 Other long term (current) drug therapy; Z79.84 Long term (current) use of oral hypoglycemic drugs; Z87.891 Personal history of nicotine dependence
CPT/HCPCS: 36415; 71046; 78452; 80053; 80061; 82947; 83735; 83880; 84443; 84484; 85025; 93005; 93010; 93017; 96372; 99285-25; A9270; A9500; G0378; J0706; J1650; J2785

== ENCOUNTER 2024-11-12 06:07 | Day surgery (SDC) | payer OTHER ==
[~2024-11-12] VITALS: Ht 177.8 cm; Wt 88.3 kg
[~2024-11-12 06:07] MED LIST changes: +ACET500 PO; +AMOX250; +AZIT250; +DECADRON4 M1 PO; +DILT180 PO; +FARXIGA10 MG PO; +FOLI1 PO; +LOSA25; +OLAN2.5 PO; +Vitamin D1000 UNI1 PO
[2024-11-12] MEDS ORDERED: CeFAZolin Sodium 2,000 MG in NS 100 ML IV SCH (06:45)
[2024-11-12 07:02] VITALS: BP 114/52
--- NOTE | 2024-11-12 07:24 | NUR ---
History, Chart, Medications and Allergies reviewed before start of procedure. Pre-Op teaching done. Pt verbalizes understanding. Patient confirms NPO status and agrees with scheduled surgery.
[2024-11-12] MEDS ORDERED: Heparin Sodium 5000 Units/ML 1ML MDV ONE (07:46)
[2024-11-12] MEDS ORDERED: Bupivacaine 0.5% HCl 5 MG/ML 30MLVIAL ONE (07:47)
[2024-11-12] MEDS ORDERED: FentaNYL Citrate 50 MCG/ML 2 ML Injection ONE (08:01)
[2024-11-12] MEDS ORDERED: Phenylephrine HCl 100 MCG/ML-NS 10MLSYR (1MG/10ML) ONE (08:09)
[2024-11-12] MEDS ORDERED: HYDROmorphone HCl/Pf 1MG SYR IV PRN ×2 (08:20)
[2024-11-12] MEDS ORDERED: FentaNYL Citrate 50 MCG/ML 2 ML Injection IV PRN ×2 (08:20)
[2024-11-12] MEDS ORDERED: Ondansetron HCl 2 MG / ML 2ML Vial IV PRN (08:20)
[2024-11-12] MEDS ORDERED: Albuterol 2.5 MG/3 ML VIAL INH PRN (08:20)
[2024-11-12] MEDS ORDERED: Dexamethasone Sodium Phosphate 4 MG/ML 5ML VIAL IV PRN (08:25)
[2024-11-12] MEDS ORDERED: Ondansetron HCl 2 MG / ML 2ML Vial ONE (08:39)
[2024-11-12] MEDS ORDERED: Ketorolac Tromethamine 30mg Vial ONE (08:39)
[2024-11-12] MEDS ORDERED: Dexamethasone Sod Phos 10 MG/ML 1ML VIAL ONE (08:39)
[2024-11-12 08:50] VITALS: BP 121/53
[2024-11-12 08:55] VITALS: BP 108/55
[2024-11-12 09:00] VITALS: BP 110/53
[2024-11-12] MEDS ORDERED: HYDROcodone 5-APAP 325 TAB PO PRN (09:00)
[2024-11-12 09:05] VITALS: BP 111/49
[2024-11-12 09:26] VITALS: BP 116/49
--- NOTE | 2024-11-12 09:52 | NUR ---
Discharged via wheelchair to private car for ride home. Patient States Post-Procedure ride home has been arranged. Discharge instructions reviewed with patient. Patient verbalizes understanding. Copy given to patient to take home.
== END 2024-11-12 23:00 | disposition home or self-care (01) ==
LOC: ORSCMMR 06:07 → ORD 08:00 → ORSCMMR 08:00
PROVIDERS: Surgery
PROC: 0JH60WZ Insertion of Totally Implantable Vascular Access Device into Chest Subcutaneous Tissue and Fascia, Open Approach (ICD-10-PCS; principal; 2024-11-12 08:00)
DX: C34.11 Malignant neoplasm of upper lobe, right bronchus or lung (principal); E11.9 Type 2 diabetes mellitus without complications; I10 Essential (primary) hypertension; I50.32 Chronic diastolic (congestive) heart failure; I35.0 Nonrheumatic aortic (valve) stenosis; Z79.82 Long term (current) use of aspirin; Z79.84 Long term (current) use of oral hypoglycemic drugs; Z79.899 Other long term (current) drug therapy; Z87.891 Personal history of nicotine dependence
CPT/HCPCS: 77001; 82947; C1788; J0690; J1100; J1642; J1644; J1885; J2371; J2405; J2704; J3010; J7120

== ENCOUNTER 2024-11-18 07:32 | Emergency (ER) | payer OTHER ==
[~2024-11-18] VITALS: Ht 182.9 cm; Wt 85.7 kg
[2024-11-18 08:14] LABS: BASOPHILS ABSOLUTE AUTO 0.06 K/mm3 (0.00-0.23); BASOPHILS PERCENT AUTO 1 % (0-2); EOSINOPHILS ABSOLUTE AUTO 0.10 K/mm3 (0.00-0.68); EOSINOPHILS PERCENT AUTO 2 % (0-6); Hematocrit 38.7 % (37.0-53.0); Hemoglobin 12.3 g/dL (13.5-17.5); IMMATURE GRAN ABSOLUTE AUTO 0.07 K/mm3 (0.00-0.10); IMMATURE GRAN PERCENT AUTO 1 % (0-1); LYMPHOCYTES ABSOLUTE AUTO 0.61 K/mm3 (0.84-5.20); LYMPHOCYTES PERCENT AUTO 10 % (21-46); MONOCYTES ABSOLUTE AUTO 0.49 K/mm3 (0.16-1.47); MONOCYTES PERCENT AUTO 8 % (4-13); Mean Corpuscular HGB Conc 31.8 g/dL (31.5-36.5); Mean Corpuscular Volume 94 fL (80-100); NEUTROPHILS ABSOLUTE AUTO 4.78 K/mm3 (1.96-9.15); NEUTROPHILS PERCENT AUTO 78 % (41-73); NRBC ABSOLUTE 0.00 K/mm3 (0.00-0.02); NRBC Auto 0.0 /100 WBC (0.0-0.2); Platelet Count 107 K/mm3 (150-400); RDW Coefficient Variation 13.2 % (11.7-14.2); RDW Standard Deviation 44.5 fL (35.1-46.3)
[2024-11-18 08:27] LABS: Alanine Aminotransfer (ALT/SGP 120.0 U/L (12-78); Albumin, Blood 3.4 g/dL (3.4-5.0); Albumin/Globulin Ratio 1.2 (0.8-1.8); Anion Gap 13.0 mmol/L (3-11); Aspartate Aminotrans (AST/SGOT 100.0 U/L (12-37); Bilirubin, Total 0.5 mg/dL (0.1-1.0); Blood Urea Nitrogen 30.0 mg/dL (8-24); CO2, Blood 22.0 mmol/L (21-32); Calcium, Blood 9.0 mg/dL (8.5-10.1); Chloride, Blood 109.0 mmol/L (98-108); Creatinine, Blood 0.87 mg/dL (0.60-1.20); Globulin, Blood 2.9 g/dL (2.2-4.0); Glucose, Blood 279.0 mg/dL (70-99); Potassium, Blood 4.2 mmol/L (3.5-5.5); Sodium, Blood 140.0 mmol/L (136-145); Total Protein, Blood 6.3 g/dL (6.4-8.2)
[2024-11-18 09:00] VITALS: BP 112/56
== END 2024-11-18 09:17 | disposition home or self-care (01) ==
LOC: ER 07:32
PROVIDERS: Emergency Medicine
DX: I47.10 Supraventricular tachycardia, unspecified (principal); I11.0 Hypertensive heart disease with heart failure; I50.30 Unspecified diastolic (congestive) heart failure; R79.89 Other specified abnormal findings of blood chemistry; E78.5 Hyperlipidemia, unspecified; E11.9 Type 2 diabetes mellitus without complications; M19.90 Unspecified osteoarthritis, unspecified site; Z79.84 Long term (current) use of oral hypoglycemic drugs; Z79.899 Other long term (current) drug therapy; Z87.891 Personal history of nicotine dependence; C34.90 Malignant neoplasm of unspecified part of unspecified bronchus or lung; C34.11 Malignant neoplasm of upper lobe, right bronchus or lung
CPT/HCPCS: 36415; 71260; 80053; 83735; 85025; 93005; 93010; 99285-25; Q9967

== ENCOUNTER 2024-11-24 00:45 | Day surgery (SDC) | payer OTHER ==
[2024-11-24 14:04] VITALS: BP 135/76
[2024-11-24 14:49] LABS: BASOPHILS ABSOLUTE AUTO 0.15 K/mm3 (0.00-0.23); BASOPHILS PERCENT AUTO 1 % (0-2); EOSINOPHILS ABSOLUTE AUTO 0.34 K/mm3 (0.00-0.68); EOSINOPHILS PERCENT AUTO 2 % (0-6); Hematocrit 37.5 % (37.0-53.0); Hemoglobin 12.0 g/dL (13.5-17.5); IMMATURE GRAN ABSOLUTE AUTO 0.43 K/mm3 (0.00-0.10); IMMATURE GRAN PERCENT AUTO 2 % (0-1); LYMPHOCYTES ABSOLUTE AUTO 1.63 K/mm3 (0.84-5.20); LYMPHOCYTES PERCENT AUTO 9 % (21-46); MONOCYTES ABSOLUTE AUTO 0.81 K/mm3 (0.16-1.47); MONOCYTES PERCENT AUTO 4 % (4-13); Mean Corpuscular HGB Conc 32.0 g/dL (31.5-36.5); Mean Corpuscular Volume 92 fL (80-100); NEUTROPHILS ABSOLUTE AUTO 15.20 K/mm3 (1.96-9.15); NEUTROPHILS PERCENT AUTO 82 % (41-73); NRBC ABSOLUTE 0.00 K/mm3 (0.00-0.02); NRBC Auto 0.0 /100 WBC (0.0-0.2); Platelet Count 232 K/mm3 (150-400); RDW Coefficient Variation 14.4 % (11.7-14.2); RDW Standard Deviation 43.9 fL (35.1-46.3)
[2024-11-24 15:11] LABS: Alanine Aminotransfer (ALT/SGP 72.0 U/L (12-78); Albumin, Blood 3.5 g/dL (3.4-5.0); Albumin/Globulin Ratio 1.0 (0.8-1.8); Anion Gap 8.0 mmol/L (3-11); Aspartate Aminotrans (AST/SGOT 30.0 U/L (12-37); Bilirubin, Total 0.3 mg/dL (0.1-1.0); Blood Urea Nitrogen 26.0 mg/dL (8-24); CO2, Blood 27.0 mmol/L (21-32); Calcium, Blood 9.0 mg/dL (8.5-10.1); Chloride, Blood 107.0 mmol/L (98-108); Creatinine, Blood 1.0 mg/dL (0.60-1.20); Globulin, Blood 3.4 g/dL (2.2-4.0); Glucose, Blood 207.0 mg/dL (70-99); Potassium, Blood 4.2 mmol/L (3.5-5.5); Sodium, Blood 138.0 mmol/L (136-145); Total Protein, Blood 6.9 g/dL (6.4-8.2)
== END 2024-11-24 14:18 | disposition home or self-care (01) ==
LOC: ATC 00:45
PROVIDERS: Nurse Practitioner
DX: C34.11 Malignant neoplasm of upper lobe, right bronchus or lung (principal); C77.1 Secondary and unspecified malignant neoplasm of intrathoracic lymph nodes; E11.9 Type 2 diabetes mellitus without complications; Z79.84 Long term (current) use of oral hypoglycemic drugs; Z87.891 Personal history of nicotine dependence
CPT/HCPCS: 36591; 80053; 85025; J1642

== ENCOUNTER 2024-12-10 01:13 | Day surgery (SDC) | payer OTHER ==
[2024-12-10 09:19] VITALS: BP 138/58
[2024-12-10 10:25] LABS: BASOPHILS ABSOLUTE AUTO 0.08 K/mm3 (0.00-0.23); BASOPHILS PERCENT AUTO 1 % (0-2); EOSINOPHILS ABSOLUTE AUTO 0.23 K/mm3 (0.00-0.68); EOSINOPHILS PERCENT AUTO 2 % (0-6); Hematocrit 33.9 % (37.0-53.0); Hemoglobin 10.7 g/dL (13.5-17.5); IMMATURE GRAN ABSOLUTE AUTO 0.09 K/mm3 (0.00-0.10); IMMATURE GRAN PERCENT AUTO 1 % (0-1); LYMPHOCYTES ABSOLUTE AUTO 0.85 K/mm3 (0.84-5.20); LYMPHOCYTES PERCENT AUTO 8 % (21-46); MONOCYTES ABSOLUTE AUTO 0.94 K/mm3 (0.16-1.47); MONOCYTES PERCENT AUTO 9 % (4-13); Mean Corpuscular HGB Conc 31.6 g/dL (31.5-36.5); Mean Corpuscular Volume 96 fL (80-100); NEUTROPHILS ABSOLUTE AUTO 8.75 K/mm3 (1.96-9.15); NEUTROPHILS PERCENT AUTO 80 % (41-73); NRBC ABSOLUTE 0.00 K/mm3 (0.00-0.02); NRBC Auto 0.0 /100 WBC (0.0-0.2); Platelet Count 104 K/mm3 (150-400); RDW Coefficient Variation 15.9 % (11.7-14.2); RDW Standard Deviation 55.6 fL (35.1-46.3)
[2024-12-10 10:58] LABS: Alanine Aminotransfer (ALT/SGP 50.0 U/L (12-78); Albumin, Blood 3.5 g/dL (3.4-5.0); Albumin/Globulin Ratio 1.2 (0.8-1.8); Anion Gap 8.0 mmol/L (3-11); Aspartate Aminotrans (AST/SGOT 37.0 U/L (12-37); Bilirubin, Total 0.4 mg/dL (0.1-1.0); Blood Urea Nitrogen 35.0 mg/dL (8-24); CO2, Blood 27.0 mmol/L (21-32); Calcium, Blood 9.1 mg/dL (8.5-10.1); Chloride, Blood 107.0 mmol/L (98-108); Creatinine, Blood 0.92 mg/dL (0.60-1.20); Globulin, Blood 2.8 g/dL (2.2-4.0); Glucose, Blood 195.0 mg/dL (70-99); Potassium, Blood 4.2 mmol/L (3.5-5.5); Sodium, Blood 138.0 mmol/L (136-145); Total Protein, Blood 6.3 g/dL (6.4-8.2)
== END 2024-12-10 09:26 | disposition home or self-care (01) ==
LOC: ATC 01:13
PROVIDERS: Internal Medicine Hematology & Oncology
DX: C34.11 Malignant neoplasm of upper lobe, right bronchus or lung (principal); C77.3 Secondary and unspecified malignant neoplasm of axilla and upper limb lymph nodes; E11.9 Type 2 diabetes mellitus without complications; Z79.84 Long term (current) use of oral hypoglycemic drugs; Z79.899 Other long term (current) drug therapy; Z87.891 Personal history of nicotine dependence
CPT/HCPCS: 36591; 80053; 85025; 99211; J1642

== ENCOUNTER 2024-12-22 08:10 | Day surgery (SDC) | payer OTHER ==
[2024-12-22 08:17] VITALS: BP 124/67
[2024-12-22 08:31] LABS: BASOPHILS ABSOLUTE AUTO 0.04 K/mm3 (0.00-0.23); BASOPHILS PERCENT AUTO 0 % (0-2); EOSINOPHILS ABSOLUTE AUTO 0.00 K/mm3 (0.00-0.68); EOSINOPHILS PERCENT AUTO 0 % (0-6); Hematocrit 34.7 % (37.0-53.0); Hemoglobin 11.1 g/dL (13.5-17.5); IMMATURE GRAN ABSOLUTE AUTO 0.21 K/mm3 (0.00-0.10); IMMATURE GRAN PERCENT AUTO 1 % (0-1); LYMPHOCYTES ABSOLUTE AUTO 0.31 K/mm3 (0.84-5.20); LYMPHOCYTES PERCENT AUTO 2 % (21-46); MONOCYTES ABSOLUTE AUTO 0.70 K/mm3 (0.16-1.47); MONOCYTES PERCENT AUTO 4 % (4-13); Mean Corpuscular HGB Conc 32.0 g/dL (31.5-36.5); Mean Corpuscular Volume 97 fL (80-100); NEUTROPHILS ABSOLUTE AUTO 17.16 K/mm3 (1.96-9.15); NEUTROPHILS PERCENT AUTO 93 % (41-73); NRBC ABSOLUTE 0.00 K/mm3 (0.00-0.02); NRBC Auto 0.0 /100 WBC (0.0-0.2); Platelet Count 317 K/mm3 (150-400); RDW Coefficient Variation 18.6 % (11.7-14.2); RDW Standard Deviation 64.0 fL (35.1-46.3)
[2024-12-22 08:57] LABS: Alanine Aminotransfer (ALT/SGP 29.0 U/L (12-78); Albumin, Blood 3.6 g/dL (3.4-5.0); Albumin/Globulin Ratio 1.2 (0.8-1.8); Anion Gap 12.0 mmol/L (3-11); Aspartate Aminotrans (AST/SGOT 13.0 U/L (12-37); Bilirubin, Total 0.3 mg/dL (0.1-1.0); Blood Urea Nitrogen 53.0 mg/dL (8-24); CO2, Blood 21.0 mmol/L (21-32); Calcium, Blood 9.3 mg/dL (8.5-10.1); Chloride, Blood 110.0 mmol/L (98-108); Creatinine, Blood 1.06 mg/dL (0.60-1.20); Globulin, Blood 3.0 g/dL (2.2-4.0); Glucose, Blood 350.0 mg/dL (70-99); Potassium, Blood 4.7 mmol/L (3.5-5.5); Sodium, Blood 138.0 mmol/L (136-145); Total Protein, Blood 6.6 g/dL (6.4-8.2)
== END 2024-12-22 08:25 | disposition home or self-care (01) ==
LOC: ATC 08:10
PROVIDERS: Nurse Practitioner
DX: C34.11 Malignant neoplasm of upper lobe, right bronchus or lung (principal); E11.9 Type 2 diabetes mellitus without complications; Z87.891 Personal history of nicotine dependence
CPT/HCPCS: 36591; 80053; 85025; J1642

== ENCOUNTER 2025-01-02 07:17 | Emergency (ER) | payer OTHER ==
[~2025-01-02] VITALS: Ht 182.9 cm; Wt 84.8 kg
[2025-01-02] MEDS ORDERED: NS 500 ML IV SCH (07:25)
[2025-01-02 07:26] LABS: Calcium, Ionized (POC) 1.21 mmol/L (1.10-1.46); Chloride (POC) 107 mmol/L (98-108); Creatinine (POC) 1.2 mg/dL (0.8-1.3); Glucose (ISTAT POC) 249 mg/dL (70-99); Hematocrit (POC) 35.0 % (41.0-53.0); Hemoglobin (POC) 11.9 g/dL (13.5-17.5); Potassium (POC) 4.1 mmol/L (3.5-5.5); Sodium (POC) 141 mmol/L (135-148); Total CO2 (POC) 22 mmol/L (21-32)
[2025-01-02] MEDS ORDERED: Magnesium Sulf 2 GM/Water 50ML 50 ML IV ONE (07:30)
[2025-01-02 08:05] LABS: BASOPHILS ABSOLUTE AUTO 0.06 K/mm3 (0.00-0.23); BASOPHILS PERCENT AUTO 1 % (0-2); EOSINOPHILS ABSOLUTE AUTO 0.04 K/mm3 (0.00-0.68); EOSINOPHILS PERCENT AUTO 1 % (0-6); Hematocrit 31.0 % (37.0-53.0); Hemoglobin 10.0 g/dL (13.5-17.5); IMMATURE GRAN ABSOLUTE AUTO 0.06 K/mm3 (0.00-0.10); IMMATURE GRAN PERCENT AUTO 1 % (0-1); LYMPHOCYTES ABSOLUTE AUTO 0.41 K/mm3 (0.84-5.20); LYMPHOCYTES PERCENT AUTO 7 % (21-46); MONOCYTES ABSOLUTE AUTO 0.36 K/mm3 (0.16-1.47); MONOCYTES PERCENT AUTO 6 % (4-13); Mean Corpuscular HGB Conc 32.3 g/dL (31.5-36.5); Mean Corpuscular Volume 98 fL (80-100); NEUTROPHILS ABSOLUTE AUTO 4.92 K/mm3 (1.96-9.15); NEUTROPHILS PERCENT AUTO 84 % (41-73); NRBC ABSOLUTE 0.00 K/mm3 (0.00-0.02); NRBC Auto 0.0 /100 WBC (0.0-0.2); Platelet Count 73 K/mm3 (150-400); RDW Coefficient Variation 17.6 % (11.7-14.2); RDW Standard Deviation 62.4 fL (35.1-46.3)
[2025-01-02 08:28] LABS: Alanine Aminotransfer (ALT/SGP 72.0 U/L (12-78); Albumin, Blood 3.4 g/dL (3.4-5.0); Albumin/Globulin Ratio 1.3 (0.8-1.8); Anion Gap 14.0 mmol/L (3-11); Aspartate Aminotrans (AST/SGOT 60.0 U/L (12-37); Bilirubin, Total 0.5 mg/dL (0.1-1.0); Blood Urea Nitrogen 34.0 mg/dL (8-24); CO2, Blood 19.0 mmol/L (21-32); Calcium, Blood 8.9 mg/dL (8.5-10.1); Chloride, Blood 111.0 mmol/L (98-108); Creatinine, Blood 1.02 mg/dL (0.60-1.20); Globulin, Blood 2.7 g/dL (2.2-4.0); Glucose, Blood 268.0 mg/dL (70-99); Magnesium, Blood 2.4 mg/dL (1.6-2.4); Potassium, Blood 3.5 mmol/L (3.5-5.5); Sodium, Blood 140.0 mmol/L (136-145); Total Protein, Blood 6.1 g/dL (6.4-8.2)
[2025-01-02 09:17] LABS: pH Blood Venous 7.32 (7.34-7.37)
[2025-01-02] MEDS ORDERED: Potassium Chloride 10 Meq Tablet SA PO ONE (09:20)
[2025-01-02 10:36] VITALS: BP 105/63
== END 2025-01-02 11:15 | disposition home or self-care (01) ==
LOC: ER 07:17
PROVIDERS: Student in an Organized Health Care Education/Training Program
DX: I48.91 Unspecified atrial fibrillation (principal); R55 Syncope and collapse; Z79.899 Other long term (current) drug therapy; I11.0 Hypertensive heart disease with heart failure; I50.30 Unspecified diastolic (congestive) heart failure; E11.9 Type 2 diabetes mellitus without complications; E78.5 Hyperlipidemia, unspecified; Z79.84 Long term (current) use of oral hypoglycemic drugs
CPT/HCPCS: 71045; 80047; 80053; 82803; 83735; 83880; 84484; 85014; 85025; 96365; 99285-25; A9270; J1642; J3475; J7030

== ENCOUNTER 2025-01-21 06:37 | Day surgery (SDC) | payer OTHER ==
[2025-01-21 09:35] VITALS: BP 113/60
[2025-01-21 11:04] LABS: BASOPHILS ABSOLUTE AUTO 0.13 K/mm3 (0.00-0.23); BASOPHILS PERCENT AUTO 1 % (0-2); EOSINOPHILS ABSOLUTE AUTO 0.08 K/mm3 (0.00-0.68); EOSINOPHILS PERCENT AUTO 1 % (0-6); Hematocrit 32.6 % (37.0-53.0); Hemoglobin 10.7 g/dL (13.5-17.5); IMMATURE GRAN ABSOLUTE AUTO 0.05 K/mm3 (0.00-0.10); IMMATURE GRAN PERCENT AUTO 0 % (0-1); LYMPHOCYTES ABSOLUTE AUTO 1.17 K/mm3 (0.84-5.20); LYMPHOCYTES PERCENT AUTO 10 % (21-46); MONOCYTES ABSOLUTE AUTO 0.73 K/mm3 (0.16-1.47); MONOCYTES PERCENT AUTO 7 % (4-13); Mean Corpuscular HGB Conc 32.8 g/dL (31.5-36.5); Mean Corpuscular Volume 101 fL (80-100); NEUTROPHILS ABSOLUTE AUTO 9.06 K/mm3 (1.96-9.15); NEUTROPHILS PERCENT AUTO 81 % (41-73); NRBC ABSOLUTE 0.00 K/mm3 (0.00-0.02); NRBC Auto 0.0 /100 WBC (0.0-0.2); Platelet Count 279 K/mm3 (150-400); RDW Coefficient Variation 18.1 % (11.7-14.2); RDW Standard Deviation 67.0 fL (35.1-46.3)
[2025-01-21 11:36] LABS: Alanine Aminotransfer (ALT/SGP 20.0 U/L (12-78); Albumin, Blood 3.3 g/dL (3.4-5.0); Albumin/Globulin Ratio 1.0 (0.8-1.8); Anion Gap 13.0 mmol/L (3-11); Aspartate Aminotrans (AST/SGOT 18.0 U/L (12-37); Bilirubin, Total 0.4 mg/dL (0.1-1.0); Blood Urea Nitrogen 41.0 mg/dL (8-24); CO2, Blood 21.0 mmol/L (21-32); Calcium, Blood 8.8 mg/dL (8.5-10.1); Chloride, Blood 107.0 mmol/L (98-108); Creatinine, Blood 1.11 mg/dL (0.60-1.20); Globulin, Blood 3.3 g/dL (2.2-4.0); Glucose, Blood 274.0 mg/dL (70-99); Potassium, Blood 4.7 mmol/L (3.5-5.5); Sodium, Blood 136.0 mmol/L (136-145); Thyroid Stimulating Hormone 2.39 uIU/mL (0.360-4.800); Total Protein, Blood 6.6 g/dL (6.4-8.2)
== END 2025-01-21 09:37 | disposition home or self-care (01) ==
LOC: ATC 06:37
PROVIDERS: Internal Medicine Hematology & Oncology
DX: Z45.2 Encounter for adjustment and management of vascular access device (principal); C34.11 Malignant neoplasm of upper lobe, right bronchus or lung; C77.1 Secondary and unspecified malignant neoplasm of intrathoracic lymph nodes; E11.9 Type 2 diabetes mellitus without complications; Z79.84 Long term (current) use of oral hypoglycemic drugs; Z79.899 Other long term (current) drug therapy; Z87.891 Personal history of nicotine dependence
CPT/HCPCS: 36591; 80053; 84439; 84443; 84481; 85025; J1642